=== PATIENT | male | born 1940 | race Caucasian/White ===

== ENCOUNTER 2019-05-18 10:55 | Inpatient (IN) ==
--- NOTE | 2019-05-18 11:22 | EKG Report ---
Test Performed on : 05/18/2019 11:13:09 AM Test Reason : sob copd Blood Pressure : / mmHG Vent. Rate : 066 BPM Atrial Rate : 066 BPM P-R Int : 156 ms QRS Dur : 080 ms QT Int : 400 ms P-R-T Axes : 073 -44 262 degrees QTc Int : 419 ms Normal sinus rhythm. Left axis deviation Low voltage QRS Nonspecific ST and T wave abnormality Abnormal ECG No previous ECGs available Unconfirmed Result
[2019-05-18 11:36] LABS: BASO# 0.04 X1000 (0.0-0.2); BASO% 0.6 % (0.0-0.8); EOS# 0.18 X1000 (0.0-0.7); EOS% 2.7 % (0.0-10.0); HEMATOCRIT 41.6 % (42.0-52.0); HEMOGLOBIN 13.4 g/dL (14.0-18.0); IMM GRAN# 0.01 X1000 (0.0-0.04); IMM GRAN% 0.2 % (0.0-0.5); LYMPH# 0.77 X1000 (1.2-3.4); LYMPH% 11.6 % (20.5-51.1); MCH 29.8 PG (27-31); MCHC 32.2 g/dL (33-37); MCV 92.7 FL (81-99); MONO# 0.84 X1000 (0.11-0.59); MONO% 12.6 % (1.7-9.3); MPV 8.1 FL (7.4-10.4); NEUT# 4.82 X1000 (1.4-6.5); NEUT% 72.3 % (42.2-75.2); PLT 411 X1000 (130-400); RBC 4.49 XMIL (4.7-6.1); RDW 12.1 % (11.5-14.5); WBC 6.66 X1000 (4.8-10.8)
--- NOTE | 2019-05-18 11:44 | Diag Imaging Result Doc PS360 ---
EXAM: CHEST-2 VIEWS - 05/18/2019 HISTORY: copd sob TECHNIQUE: Chest two views COMPARISON: None. FINDINGS: Heart size is normal. There are COPD changes. However/infrahilar marking prominence and hyperexpanded lungs. There is apparent basilar interstitial scarring/fibrosis. There is a small nodular density at the left upper lobe. It is not clear if the nodule is calcified. There is no focal dense consolidation, pleural effusion, or pneumothorax identified. IMPRESSION: COPD changes. Apparent basilar interstitial scarring/fibrosis. Small nodular density at left upper lobe. Correlation with CT thorax is recommended. Electronically signed by Nikunj Duran 05/18/2019 11:42 AM
[2019-05-18 11:50] LABS: INR 1.09; PROTIME 14.7 Seconds (11.0-16.0)
[2019-05-18 11:56] LABS: BE 2.2 mmoll (-3.0-3.0); BLOOD TYPE ARTERIAL; HCO3-(ACT) 26.5 mmoll (20.0-26.0); METHB 1.4 % (0.0-1.5); O2(CT) 15.6 mL/dL (15.0-23.0); O2HB 90.9 % (95.0-99.0); PCO2(98.6) 39 mmHg (35-45); PO2(98.6) 63 mmHg (60-100); SAMPLE BLOOD; SAO2 94.9 % (95.0-100.0); THB 12.2 g/dL (11.5-17.4); pH(98.6) 7.44 (7.35-7.45)
[2019-05-18 11:58] LABS: AGAP 13; ALKALINE PHOSPHATASE 65 U/L (32-122); BUN 13 mg/dL (8-22); CALCIUM 8.5 mg/dL (8.8-10.2); CHLORIDE 101 mmol/L (98-107); CK PROFILE 51 U/L (24-204); COSMO 281; CREATININE 0.7 mg/dL (0.7-1.2); ESTIMATED GFR > 60; GLUCOSE 92 mg/dL (70-104); GOT 13 U/L (10-34); GPT 8 U/L (10-44); POTASSIUM 4.2 mmol/L (3.5-5.1); SODIUM 141 mmol/L (136-145); TCO2 27 mmol/L (25-35); TOTAL PROTEIN 6.8 g/dL (6.3-8.3)
[2019-05-18 11:58] LABS: MODALITY ROOM AIR
[2019-05-18 11:59] LABS: ALLEN TEST YES
--- NOTE | 2019-05-18 14:34 | Diag Imaging Result Doc PS360 ---
EXAM: CT ANGIOGRM PULMONARY ARTERIES HISTORY: shortness of breath TECHNIQUE: CT chest with intravenous contrast. Pulmonary arterial protocol with MIP images. COMPARISON: None. FINDINGS: No pleural effusions. No cardiomegaly. No aortic aneurysm or dissection. Normal opacification of the pulmonary arteries and their branches. No enlarged lymph nodes. Severe emphysema. There is scarring in the apices and granuloma. There are calcifications along the pleural surface. No consolidation. IMPRESSION: 1.No pulmonary emboli 2.Emphysema This exam was performed using automated exposure control, adjustment of mA or kV according to patient size, and/or use of iterative reconstruction technique. Electronically signed by Vik Figueroa 05/18/2019 2:31 PM
[2019-05-18] MEDS ORDERED: NORVASC PO ONE (14:48)
--- NOTE | 2019-05-18 14:48 | PROVIDER DOCUMENTATION ---
This chart was entered by Lydia Us Scribe, acting as scribe for Meseret Monte MD. HPI-Respiratory General - General Chief Complaint: Shortness of Breath Stated Complaint: SOB Time Seen by Provider: 05/18/19 11:03 Source: patient, family Allergies/Adverse Reactions: Patient Allergies Allergy/AdvReac Type Severity Reaction Status Date / Time No Known Allergies Allergy Verified 05/18/19 11:02 Home Medications: Home Medication List Medication Instructions Recorded Confirmed Last Taken Type Albuterol Sulfate Inhaler 2 puff INH Q6H PRN PRN #1 inhaler 05/18/19 Unknown Rx [Ventolin Hfa] Azithromycin [Zithromax] 250 mg PO DAILY #6 tab 05/18/19 Unknown Rx Hydrochlorothiazide 12.5 mg PO DAILY #30 tab 05/18/19 Unknown Rx Prednisone 50 mg PO DAILY #5 tab 05/18/19 Unknown Rx - History of Present Illness-Resp Nature of Presenting Problem: 78 yowm presents to the ed with c/o worsening sob for 3 weeks. pt has hx of copd and his neb machine is broken. pt was at dr jones and sent to ed for wheezing. pt has a inhaler but sts has been using with no relief of sx Quality of Pain: reports: none Severity in ED: reports: moderate Onset/Duration: reports: other (3 weeks) Timing: reports: still present, intermittent, getting worse Exposure: reports: unknown cause Cough Quality/Degree: reports: mild, dry cough Episode Frequency: chronic episodes Current Respiratory Medication Therapy: Initiated see nurses note Modifying Factors: worse with: exertion Associated Symptoms: reports: cough, shortness of breath, wheezing. denies: chest pain/soreness, dizziness, fever/chills Similar Symptoms Previously?: Yes (COPD) Recently seen or treated by another doctor?: Yes (saw pcp dr jones) Review of Systems - Adult - REVIEW OF SYSTEMS - ADULT Constitutional: reports: no symptoms reported Eyes: reports: no symptoms reported Ears, Nose, Mouth & Throat: reports: no symptoms reported Cardiovascular: denies: chest pain, palpitations Respiratory: reports: see HPI, chronic cough, shortness of breath, wheezing Gastrointestinal: denies: abdominal pain, diarrhea, nausea, vomiting Genitourinary: reports: no symptoms reported Musculoskeletal: denies: back pain, neck pain Integumentary: reports: no symptoms reported Neurological: denies: dizziness/vertigo, headache/migraines Psychiatric: reports: no symptoms reported Endocrine: reports: no symptoms reported Hematologic/Lymphatic: reports: no symptoms reported Allergic/Immunologic: reports: no symptoms reported All Other Systems: Reviewed and Negative Past History - Adult - PAST MEDICAL HISTORY-ADULT Review of Records: reports: Old Records Reviewed, Nursing Assessment Review, Medications Reviewed, Social history reviewed & non-contributory. Major Childhood Illnesses: reports: denies history Cardiovascular: reports: denies history Respiratory: reports: COPD Gastrointestinal: reports: denies history Genitourinary: reports: denies history Musculoskeletal: reports: denies history Hand Dominance: Right Handed Neurological: reports: denies history Psychiatric: reports: denies history Endocrine/Immune: reports: denies history Other Conditions: reports: denies history - PRIOR SURGERIES/PROCEDURES Surgical/Procedure History: reports: reviewed, not pertinent - IMMUNIZATION STATUS Childhood Immunizations: See Nurse Assessment Flu Vaccine: See Nurse Assessment - FAMILY HISTORY Family History: reviewed, not pertinent - SOCIAL HISTORY Smoking: quit greater than 1 year Substance Use: denies Living Situation: family Physical Exam-General - PHYSICAL EXAM-ADULT Initial Vital Signs Reviewed: Yes - CONSTITUTIONAL General Appearance: appears well, alert, no apparent distress, thin - EYES Eyes: PERRL/EOMI, pink conjunctivae - HEAD, EARS, NOSE, MOUTH & THROAT HENMT: moist mucous membranes - NECK Neck: non-tender, full range of motion, supple, normal inspection - RESPIRATORY Respiratory: chest non-tender, decreased breath sounds, wheezing (bilateral) - CARDIOVASCULAR Cardiovascular: normal peripheral pulses, regular rate, rhythm - CHEST (BREASTS) Chest/Breast: deferred - GASTROINTESTINAL (ABDOMEN) Abdominal Exam: normal bowel sounds, non tender, soft - GENITOURINARY Male Genitalia: deferred Rectal Exam: deferred Hemoccult Exam: deferred - LYMPHATIC Lymphatic: no adenopathy - MUSCULOSKELETAL Back Exam: normal inspection, no CVA tenderness, no vertebral tenderness Extremity: normal range of motion, non-tender, normal gait, normal inspection - SKIN Integumentary: normal color, normal turgor, warm/dry - NEUROLOGIC Neurologic: grossly normal - PSYCHIATRIC Psych/Mental Status: normal mood/affect, normal thought content, normal thought process, oriented x 3 Progress - PLAN OF CARE/RESULTS Progress/Plan/Lab Results: Vital Signs - 8 hr 05/18/19 10:57 05/18/19 12:07 05/18/19 14:48 Temperature 97.8 F Pulse Rate 70 67 80 Respiratory Rate 18 30 H Blood Pressure 156/70 143/61 O2 Sat by Pulse Oximetry 95 96 95 Laboratory Results - last 24 hr 05/18/19 05/18/19 05/18/19 11:23 11:23 11:23 WBC 6.66 RBC 4.49 L Hgb 13.4 L Hct 41.6 L MCV 92.7 MCH 29.8 MCHC 32.2 L RDW Std Deviation 12.1 Plt Count 411 H MPV 8.1 Immature Gran % (Auto) 0.2 Neut % (Auto) 72.3 Lymph % (Auto) 11.6 L [place] % (Auto) 12.6 H Eos % (Auto) 2.7 Baso % (Auto) 0.6 Immature Gran # (Auto) 0.01 Neut # (Auto) 4.82 Lymph # (Auto) 0.77 L [place] # (Auto) 0.84 H Eos # (Auto) 0.18 Baso # (Auto) 0.04 PT INR PTT (Actin FS) Specimen Type Sample Site pH pCO2 pO2 HCO3 Base Excess Oxyhemoglobin ABG O2 Sat (Calculated) ABG O2 Saturation ABG Carboxyhemoglobin ABG Methemoglobin Tj Test A-a O2 Difference Total Hemoglobin Lactate Blood Gas Modality FiO2 % Sodium 141 Potassium 4.2 Chloride 101 Carbon Dioxide 27 Anion Gap 13 BUN 13 Creatinine 0.7 Estimated GFR/1.73 m2 > 60 BUN/Creatinine Ratio 19 Glucose 92 Calculated Osmolality 281 Calcium 8.5 L Total Bilirubin 0.50 AST 13 ALT 8 L Alkaline Phosphatase 65 Creatine Kinase 51 Troponin T Ksc-H-Zaqjicvxfdi Pept 276 Total Protein 6.8 Albumin 4.0 Globulin 3.0 Albumin/Globulin Ratio 1.0 05/18/19 05/18/19 05/18/19 11:23 11:23 11:32 WBC RBC Hgb Hct MCV MCH MCHC RDW Std Deviation Plt Count MPV Immature Gran % (Auto) Neut % (Auto) Lymph % (Auto) [place] % (Auto) Eos % (Auto) Baso % (Auto) Immature Gran # (Auto) Neut # (Auto) Lymph # (Auto) [place] # (Auto) Eos # (Auto) Baso # (Auto) PT 14.7 INR 1.09 PTT (Actin FS) 33.0 Specimen Type ARTERIAL Sample Site R RADIAL pH 7.44 pCO2 39 pO2 63 HCO3 26.5 H Base Excess 2.2 Oxyhemoglobin 90.9 L ABG O2 Sat (Calculated) 15.6 ABG O2 Saturation 94.9 L ABG Carboxyhemoglobin 2.80 H ABG Methemoglobin 1.4 Tj Test YES A-a O2 Difference 38.0 Total Hemoglobin 12.2 Lactate 0.90 Blood Gas Modality ROOM AIR FiO2 % 21.0 Sodium Potassium Chloride Carbon Dioxide Anion Gap BUN Creatinine Estimated GFR/1.73 m2 BUN/Creatinine Ratio Glucose Calculated Osmolality Calcium Total Bilirubin AST ALT Alkaline Phosphatase Creatine Kinase Troponin T < 0.010 Evq-C-Ljjjhjaruqq Pept Total Protein Albumin Globulin Albumin/Globulin Ratio Orders Category Date Time Status Cardiac Monitoring DIRECTED Care 05/18/19 11:04 Active Oxygen Therapy- ED Nursing DIRECTED Care 05/18/19 11:04 Active Saline Loc NOW Care 05/18/19 11:04 Active CHEST-2 VIEWS [RAD] Stat Exams 05/18/19 11:04 Completed CTA [CT ANGIOGRM PULMONARY ARTERIES] [CT] Stat Exams 05/18/19 14:02 Completed ABG [RESP] Routine Lab 05/18/19 11:32 Completed BLOOD CULTURE [BLDCUL] Stat Lab 05/18/19 15:06 Uncollected CBC WITH ELECTRONIC DIFF [HEME] Stat Lab 05/18/19 11:23 Completed CK PROFILE [SP CHEM] Stat Lab 05/18/19 11:23 Completed COMPREHENSIVE METABOLIC PANEL [CHEM] Stat Lab 05/18/19 11:23 Completed PRO B-NATRIURETIC PEPTIDE Stat Lab 05/18/19 11:23 Completed PROTIME WITH INR [COAG] Stat Lab 05/18/19 11:23 Completed PTT [COAG] Stat Lab 05/18/19 11:23 Completed TROPONIN T Stat Lab 05/18/19 11:23 Completed Amlodipine [Norvasc] Med 05/18/19 14:48 Discontinued 10 mg PO NOW ONE CefTRIAXONE [Rocephin] 1 gm Med 05/18/19 14:49 Active 0.9% Sodium Chloride Inj [Ns] 50 ml IV NOW Methylprednisolone Sod Succ [Solu-Medrol] Med 05/18/19 14:49 Discontinued 125 mg IV NOW ONE CP/SOB/Palp >45 yrs of Age Stat Oth 05/18/19 11:04 Ordered EKG [EKG] Stat Ther 05/18/19 11:04 Draft Result Diagrams: 05/18/19 11:23 05/18/19 11:23 - REASSESSMENT Reassessment #1 Time Reassessed: 15:08 Status: worsening (patient went to restroom, became short of breath) - EKG 1 Time of EKG reading by physician:: 11:13 EKG Read and Signed by:: Meseret Monte EKG Interpretation (*Must complete 3 of following elements*): Abnormal Rate: 66 Rhythm: Normal sinus rhythm [place]: left QRS: other (low voltage QRS) [place] Interval: normal ST Wave: non-specific ST changes - XRAY 1 XRAY: Bilateral XRAY Study: Chest Impression: See EMR Report (EXAM: CHEST-2 VIEWS - 05/18/2019 HISTORY: copd sob TECHNIQUE: Chest two views COMPARISON: None. FINDINGS: Heart size is normal. There are COPD changes. However/infrahilar marking prominence and hypere xpanded lungs. There is apparent basilar interstitial scarring/fibrosis. There is a small nodular density at the left upper lobe. It is not clear if the nodule is calcified. There is no focal dense consolidation, pleural effusion, or pneumothorax identified. IMPRESSION: COPD changes. Apparent basilar interstitial scarring/fibrosis. Small nodular density at left upper lobe. Correlation with CT thorax is recommended. Electronically signed by Nikunj Duran 05/18/2019 11:42 AM 05/18/19 1142 Interpreting Physician: Nikunj Duran MD Dictated Date/Time: 05/18/19 1137 cc: Meseret Monte MD; Micheal Jones MD) - CONSULTS/PCP/HOSPITALIST Notification #1 *Consult/PCP/Hospitalist*: Dr Stover Time Discussed: 15:08 Consult Disposition: Admit (OK to admit) Departure - Departure Date of Disposition Decision: 05/18/19 Time of Disposition Decision: 14:50 DIAGNOSIS: Emphysema lung Qualifiers: Emphysema type: unspecified Qualified Code(s): J43.9 - Emphysema, unspecified Disposition: ADMITTED INPATIENT 09 Certified Medical Emergency: Emergent Condition: Good Prescriptions: Hydrochlorothiazide 12.5 mg PO DAILY #30 tab Prednisone 50 mg PO DAILY #5 tab Albuterol Sulfate Inhaler [Ventolin Hfa] 2 puff INH Q6H PRN PRN #1 inhaler PRN Reason: wheezes Azithromycin [Zithromax] 250 mg PO DAILY #6 tab Referrals and Follow-Ups: Micheal Jones MD [Primary Care Provider] - Work Excuses: Return to School/Parent Work Discharge Education: Chronic Obstructive Pulmonary Disease - Critical Care Note This patient required my direct & personal management of CC.: No Attestation - Physician/ REE Attestation Patient care was provided by Advanced Practice Provider:: No The physician spent face to face time with patient:: Yes Advanced Practice Provider documentation review:: Supervising physician onsite and consulted in the evaluation and care of this patient. The physician did have a face to face encounter with the patient. This chart was documented by the indicated scribe, (Lydia Us Scribe) and accurately reflects the services I performed and decisions made by me, Meseret Monte MD, as attested by the provider's signature.
[2019-05-18] MEDS ORDERED: SOLU-MEDROL IV ONE (14:49)
[2019-05-18] MEDS ORDERED: ROCEPHIN 1 GM in NS 50 ML IV ONE (14:49)
[2019-05-18] MEDS ORDERED: ZOFRAN IV PRN (15:08)
[2019-05-18] MEDS ORDERED: DUONEB (A & A) INH PRN (15:08)
[2019-05-18] MEDS ORDERED: TYLENOL PO PRN (15:08)
[2019-05-18] MEDS: DUONEB (A & A) INH SCH ×3 (15:59→22:54)
[2019-05-18] MEDS: SOLU-MEDROL IV SCH (21:39)
--- NOTE | 2019-05-18 23:33 | HISTORY AND PHYSICAL ---
CHIEF COMPLAINT: Shortness of breath. HISTORY OF PRESENT ILLNESS: Patient is a 78-year-old male who presented to the emergency department with increased work of breathing, shortness of breath, coughing over approximately 3 weeks. However, he has been recalcitrant to coming to the hospital. His daughter finally convinced him to come to the ER tonight. Does have a history of COPD. His nebulizer machine has been broken. He has not used it in quite some time. Notes that he has a long history of smoking, stopped approximately 2 years ago, stopped vaping approximately 3 to 4 weeks ago secondary to his increased work of breathing. ALLERGIES: No known drug allergies. MEDICATIONS: He takes hydrochlorothiazide. Does have a history of albuterol and Ventolin inhaler use although has not been using it at home. REVIEW OF SYSTEMS: Positive increased cough congestion shortness of breath, increased work of breathing, increased dyspnea on exertion. Denies chest pain, palpitation. Denies any fevers, chills. Denies dysuria, urinary frequency, urgency, hesitancy, polyuria or polydipsia. Denies skin rashes, weight loss or weight gain. PAST MEDICAL HISTORY: Significant for hypertension, COPD, chronic tobacco abuse. FAMILY HISTORY: Noncontributory. SOCIAL HISTORY: Stopped smoking greater than a year ago. Stopped vaping approximately a month ago. PHYSICAL EXAMINATION: VITAL SIGNS: Reviewed. Temperature 97.8 degrees, pulse 70, respiratory rate 18, BP 156/70, saturation dropped to 84% when ambulating, currently 94% on 2 L. GENERAL: Patient is awake, alert, very pleasant. He is in mild respiratory distress while he is lying in the bed. This certainly worsens when he gets up and attempts to ambulate. HEENT: Normocephalic. NECK: Supple. CARDIOVASCULAR: Regular rate. No murmurs. CHEST: Decreased but equal. Positive wheezing bilaterally. No crackles. ABDOMEN: Soft, nondistended, nontender. EXTREMITIES: Moves all extremities. No edema. NEUROLOGIC: No focal neurological changes. Patient is awake, alert, oriented x3. LABORATORIES: CBC, CMP essentially normal. Chest x-ray demonstrates COPD, no acute infiltrate. ASSESSMENT: 1. Chronic obstructive pulmonary disease with moderate exacerbation. 2. Hypertension. 3. Small nodular density left upper lobe that will need to be followed up outpatient. PLAN: Overall, patient has a COPD exacerbation. We are going to admit to the hospital, place him on COPD protocol with breathing treatments, steroids, antibiotics. We will continue his oxygen, continue to follow. Further orders as needed. cc: Catracho Stover MD
[2019-05-19] MEDS: DUONEB (A & A) INH SCH ×6 (03:31→23:23)
[2019-05-19 05:29] LABS: HEMATOCRIT 39.2 % (42.0-52.0); HEMOGLOBIN 12.7 g/dL (14.0-18.0); MCH 29.5 PG (27-31); MCHC 32.4 g/dL (33-37); RBC 4.31 XMIL (4.7-6.1); RDW 11.8 % (11.5-14.5); WBC 5.33 X1000 (4.8-10.8)
[2019-05-19 05:43] LABS: AGAP 11; ALBUMIN 3.7 g/dL (3.5-5.0); ALKALINE PHOSPHATASE 61 U/L (32-122); BUN 15 mg/dL (8-22); CALCIUM 8.7 mg/dL (8.8-10.2); CHLORIDE 101 mmol/L (98-107); COSMO 280; CREATININE 0.7 mg/dL (0.7-1.2); ESTIMATED GFR > 60; GLUCOSE 191 mg/dL (70-104); GOT 13 U/L (10-34); GPT 8 U/L (10-44); POTASSIUM 4.3 mmol/L (3.5-5.1); SODIUM 137 mmol/L (136-145); TCO2 26 mmol/L (25-35); TOTAL PROTEIN 6.8 g/dL (6.3-8.3)
[2019-05-19] MEDS: SOLU-MEDROL IV SCH ×3 (05:56→21:04)
--- NOTE | 2019-05-19 18:11 | PROGRESS NOTE ---
DATE: 05/19/2019 SUBJECTIVE: Patient notes he is feeling a lot better. His cough is improved. His shortness of breath has improved. Denies any fevers or chills. States he really has not been out of bed since admission. OBJECTIVE: Vital signs: Temperature 97.6 degrees, pulse 91, respiratory rate 18, BP 104/46. General: Patient is very pleasant, currently in no distress. HEENT: Normocephalic. Neck: Supple. Cardiovascular: Regular rate. Chest: Improved, still minimal wheezing. No crackles, better air movement. Abdomen: Soft, nondistended. Extremities: Moves all extremities. Neurologic: No changes. ASSESSMENT: 1. Chronic obstructive pulmonary disease with exacerbation. 2. Hypertension. 3. Small nodular density left upper lobe that will be followed up outpatient. PLAN: We are going to continue patient in the hospital, wean his Solu-Medrol. Continue antibiotics, oxygen and breathing treatments. Hopefully home over the next 1 or 2 days. cc: Catracho Stover MD
[2019-05-20] MEDS: DUONEB (A & A) INH SCH ×3 (03:42→11:29)
[2019-05-20] MEDS: SOLU-MEDROL IV SCH (05:10)
[2019-05-20 07:39] VITALS: BP 125/59
--- NOTE | 2019-05-21 14:50 | DISCHARGE SUMMARY ---
ADMISSION DATE: 05/18/2019 DISCHARGE DATE: 05/20/2019 DISCHARGE DIAGNOSES: 1. Chronic obstructive pulmonary disease with exacerbation, improved. 2. Hypertension. 3. Small nodular density, left upper lobe, that will need to be followed up outpatient. The patient is aware. CONSULTATIONS: None. PROCEDURES: None. BRIEF HOSPITAL COURSE: The patient is a 78-year-old male who presented to [facility] secondary to increased cough, congestion, shortness of breath. He was admitted to the hospital, placed on steroids, oxygen, breathing treatments. Thankfully, he continued to improve. On discharge, his lung exam has dramatically improved. He is awake, alert. He is oriented. He is in no distress. He notes that his breathing is back to his baseline. DISPOSITION: The patient will be discharged home. He will follow up outpatient with treatment facility of choice. Discussed that he needs to continue to avoid all smoke and smoke exposure. He does have a small density nodular area in the left upper lobe that will need to be followed up outpatient. DISCHARGE MEDICATIONS: The patient will be discharged home with antibiotics, Medrol Dosepak, as well as breathing treatments. TIME SPENT: Greater than 30 minutes were spent in total care. cc: Catracho Stover MD
== END 2019-05-20 12:50 | disposition home or self-care (01) | DRG 191 ==
LOC: P.ED 10:55 → P.MEDSURG 16:12
PROVIDERS: ATTEND Family Medicine